=== PATIENT | female | born 1990 | race Caucasian/White ===

== ENCOUNTER 2024-12-23 21:23 | Emergency (ER) | payer MEDICAID ==
[~2024-12-23] VITALS: Ht 175.3 cm; Wt 99.7 kg
[2024-12-23 21:24] VITALS: TEMP 36.8
[2024-12-23] MEDS: IPRATROPIUM/ALBUTEROL 0.5-3(2.5)MG/3ML NEB HHN ONE (21:55)
[2024-12-23 21:56] VITALS: PULSE 80; RESP 22; O2SAT 94
[2024-12-23] MEDS ORDERED: P20 MT (22:25)
[2024-12-23] MEDS ORDERED: ALBU90AE INH (22:25)
[2024-12-23 22:45] VITALS: BP 138/82; PULSE 80; RESP 18; O2SAT 100
== END 2024-12-23 23:58 | disposition home or self-care (01) ==
LOC: ER 21:23
DX: J45.909 Unspecified asthma, uncomplicated (principal)
CPT/HCPCS: 71045; 94640; 99283; Z7610 ×3; 94070; 94664